=== PATIENT | female | born 1955 | race Caucasian/White ===

== ENCOUNTER 2016-08-31 12:45 | Emergency (ER) | payer BC ==
[~2016-08-31] VITALS: Ht 165.1 cm; Wt 113.0 kg
[~2016-08-31 12:45] MED LIST: ADVAIR 500-501 EACH IH; AMLODIPINE BESYL5 MG PO; COZAAR100 MG PO; CYMBALTA20 MG PO; DIAZEPAM5 MG PO; LIDOCAINE PATCH TP; PRILOSEC OTC20 MG PO; PROAIR HFA8.5 GM IH; SERTRALINE HCL50 MG PO; SKELAXIN400 M1 PO; VITAMIN D250000 UNIT PO; XODOL 7.5-3001 EACH PO; ZESTRIL,PRINIVI10 MG PO
[2016-08-31] MEDS ORDERED: OXYCONTIN10 MG PO (15:04)
[2016-08-31 18:05] LABS: ADD MIUA? YES; BILIRUBIN NEGATIVE; BLOOD NEGATIVE; COLOR YELLOW ((YELLOW)); GLUCOSE (STRIP) NEGATIVE; KETONES NEGATIVE; LEUKOCYTES LARGE; NITRITE NEGATIVE; PROTEIN (STRIP) NEGATIVE; SPECIFIC GRAVITY 1.005 (1.000-1.030); UROBILINOGEN 0.2 MG/DL (0.2-1.0)
[2016-08-31 18:24] LABS: BACTERIA 3+ /HPF; EPITHELIAL CELLS RARE /HPF; MUCUS NONE SEEN /LPF; RED BLOOD CELLS 0-5 /HPF (0-5)
[2016-08-31] MEDS ORDERED: KEFLEX500 MG PO (19:21)
[2016-08-31] MEDS ORDERED: ULTRACET1 TABLET PO (19:22)
[2016-08-31] MEDS ORDERED: ZOFRAN ODT4 MG PO (19:22)
[2016-08-31 19:49] VITALS: BP 32/88
== END 2016-08-31 19:50 | disposition home or self-care (01) ==
LOC: EME 12:45
PROVIDERS: Physician Assistant
DX: N39.0 Urinary tract infection, site not specified (principal); I10 Essential (primary) hypertension; J45.909 Unspecified asthma, uncomplicated; E66.9 Obesity, unspecified; Z68.41 Body mass index [BMI] 40.0-44.9, adult; Z90.710 Acquired absence of both cervix and uterus; Z90.10 Acquired absence of unspecified breast and nipple; Z79.891 Long term (current) use of opiate analgesic
CPT/HCPCS: 74176; 81003; 87086; 99281; 99284; J0696; J3010

== ENCOUNTER 2017-05-11 09:26 | Day surgery (SDC) | payer OTHER, BC ==
[~2017-05-11] VITALS: Ht 167.6 cm; Wt 113.5 kg
[~2017-05-11 09:26] MED LIST changes: +GRALISE600 MG PO; +KEFLEX500 MG PO; +LIDOCARE1 EACH TP; +NORVASC5 MG PO; +OXYCONTIN10 MG PO; +ULTRACET1 TABLET PO; +ZOFRAN ODT4 MG PO
== END 2017-05-11 10:35 | disposition home or self-care (01) ==
LOC: PAIN 09:26 → SDC 10:00 → PAIN 10:00
PROC: 3E0T3TZ Introduction of Destructive Agent into Peripheral Nerves and Plexi, Percutaneous Approach (ICD-10-PCS; principal; 2017-05-11)
PROC: BR161ZZ Fluoroscopy of Lumbar Facet Joint(s) using Low Osmolar Contrast (ICD-10-PCS; principal; 2017-05-11)
DX: M47.816 Spondylosis without myelopathy or radiculopathy, lumbar region (principal); M54.5 Low back pain; G89.29 Other chronic pain; M47.812 Spondylosis without myelopathy or radiculopathy, cervical region; M79.7 Fibromyalgia; F41.8 Other specified anxiety disorders; I10 Essential (primary) hypertension; Z85.3 Personal history of malignant neoplasm of breast; J45.909 Unspecified asthma, uncomplicated; Z88.2 Allergy status to sulfonamides
CPT/HCPCS: J1030; J2250; J3010; S0020

== ENCOUNTER 2017-05-17 09:51 | Day surgery (SDC) | payer BC, OTHER ==
[~2017-05-17] VITALS: Ht 167.6 cm; Wt 113.5 kg
== END 2017-05-17 12:05 | disposition home or self-care (01) ==
LOC: PAIN 09:51 → SDC 10:30 → PAIN 10:30
DX: M47.816 Spondylosis without myelopathy or radiculopathy, lumbar region (principal); M54.5 Low back pain; G89.29 Other chronic pain; M79.7 Fibromyalgia; M47.812 Spondylosis without myelopathy or radiculopathy, cervical region; I10 Essential (primary) hypertension; F41.8 Other specified anxiety disorders; J45.909 Unspecified asthma, uncomplicated; K21.9 Gastro-esophageal reflux disease without esophagitis; Z85.3 Personal history of malignant neoplasm of breast
CPT/HCPCS: J1030; J2250; J3010; S0020

== ENCOUNTER 2017-10-19 09:27 | Day surgery (SDC) | payer BC, OTHER ==
[~2017-10-19] VITALS: Ht 167.6 cm; Wt 113.5 kg
== END 2017-10-19 11:00 | disposition home or self-care (01) ==
LOC: PAIN 09:27 → SDC 10:00 → PAIN 11:00
DX: M53.3 Sacrococcygeal disorders, not elsewhere classified (principal); M46.1 Sacroiliitis, not elsewhere classified; M47.816 Spondylosis without myelopathy or radiculopathy, lumbar region; M47.812 Spondylosis without myelopathy or radiculopathy, cervical region; M79.7 Fibromyalgia; I10 Essential (primary) hypertension; J45.909 Unspecified asthma, uncomplicated; K21.9 Gastro-esophageal reflux disease without esophagitis; F41.8 Other specified anxiety disorders; Z88.2 Allergy status to sulfonamides; Z79.891 Long term (current) use of opiate analgesic; Z88.8 Allergy status to other drugs, medicaments and biological substances
CPT/HCPCS: J1030; J2250; S0020